=== PATIENT | female | born 1945 | race Caucasian/White ===

== ENCOUNTER 2017-06-22 06:57 | Inpatient (IN) ==
[2017-06-16 12:41] LABS: Basophils # 0.1 10*3/uL (0.0-0.2); Basophils % 0.5 % (0.0-0.8); Eosinophils # 0.2 10*3/uL (0.0-0.87); Eosinophils % 1.9 % (0.00-10.9); Hematocrit 35.1 VOL% (35.7-47.0); Hemoglobin 11.5 GM/DL (12.0-16.0); Immature Granulocytes % 0.4 %; Immature Granulocytes Absolute 0.05 #; Lymphocytes # 2.8 10*3/uL (1.4-4.0); Lymphocytes % 22.2 % (21.3-54.2); Mean Corpuscular HGB Conc 32.8 GM/DL (32-36); Mean Corpuscular Hemoglobin 29 PG (27-34); Mean Corpuscular Volume 88.9 FL (87-102); Mean Platelet Volume 9.3 FL (9.6-12.0); Monocytes # 0.7 10*3/uL (0.11-0.8); Monocytes % 5.2 % (1.7-12.7); Neutrophils # 8.7 10*3/uL (1.4-7.4); Neutrophils % 69.8 % (38.7-73.9); Platelet Count 434 T/CUMM (130-400); Red Blood Count 3.95 MC/CUMM (3.8-5.5); Red Cell Distribution Width 14.6 % (9.3-17.3); White Blood Count 12.5 T/CUMM (4-12)
[2017-06-16 13:20] LABS: Albumin 3.8 G/DL (3.4-5.0); Bilirubin,Total 0.4 MG/DL (0.2-1.0); Calcium 9.3 MG/DL (8.5-10.1); Osmolality,Calculated 281.5 MOS/KG (273-304); Potassium 4.1 MMOL/L (3.5-5.1); Total Protein 7.5 G/DL (6.4-8.3)
[2017-06-22] MEDS ORDERED: HEPARIN 5,000 UNIT/1 ML VIAL ONE (08:53)
[2017-06-22] MEDS ORDERED: VANCOMYCIN 500 MG VIAL ONE (08:53)
[2017-06-22] MEDS ORDERED: SODIUM CHLORIDE 0.9% 50 ML IV ONE (08:58)
[2017-06-22] MEDS ORDERED: ceFAZolin 1,000 MG VIAL ONE (08:58)
[2017-06-22] MEDS ORDERED: FAMOTIDINE 20 MG TABLET PO ONE (09:19)
[2017-06-22] MEDS ORDERED: DIAZEPAM 5 MG TABLET PO ONE (09:19)
[2017-06-22] MEDS ORDERED: IPRATROPIUM 500 MCG/2.5 ML NEB RESP TX ONE (09:19)
[2017-06-22] MEDS: LACTATED RINGERS 1,000 ML IV SCH ×2 (09:19→13:46)
[2017-06-22] MEDS ORDERED: PROMETHAZINE 25 MG/1 ML VIAL IM PRN (11:57)
[2017-06-22] MEDS ORDERED: NALOXONE 0.4 MG/ML VIAL IV PRN (11:57)
[2017-06-22] MEDS ORDERED: GLUCAGON 1 MG VIAL IM PRN (11:57)
[2017-06-22] MEDS ORDERED: ONDANSETRON 4 MG/2 ML VIAL IV PRN ×2 (11:57→12:41)
[2017-06-22] MEDS ORDERED: DEXTROSE 50% 25 GM/50 ML VIAL IV PRN (11:57)
[2017-06-22] MEDS ORDERED: NITROPRUSSIDE 100 MG in DEXTROSE 5% 250 ML IV SCH (12:00)
[2017-06-22] MEDS ORDERED: ALBUTEROL 2.5 MG/3 ML NEB RESP TX SCH (12:01)
[2017-06-22] MEDS ORDERED: HYDROmorphone 2 MG/1 ML VIAL ONE (12:35)
[2017-06-22] MEDS ORDERED: HEPARIN/NACL 0.9% 2 UNITS/ML 500 ML IV ONE (12:35)
[2017-06-22] MEDS ORDERED: PHENYLEPHRINE DRIP 20 MG/250 ML PREMIX IV ONE (12:35)
[2017-06-22] MEDS ORDERED: SEVOFLURANE 1 UNIT/15 MINUTE INH ONE (12:35)
[2017-06-22] MEDS ORDERED: PROPOFOL 200 MG/20 ML VIAL IV ONE (12:35)
[2017-06-22] MEDS ORDERED: HEPARIN 10,000 UNIT/10 ML VIAL ONE (12:35)
[2017-06-22] MEDS ORDERED: fentaNYL 100 MCG/2 ML VIAL ONE (12:36)
[2017-06-22] MEDS ORDERED: MIDAZOLAM 2 MG/2 ML VIAL ONE (12:36)
[2017-06-22] MEDS ORDERED: ONDANSETRON 4 MG/2 ML VIAL ONE ×2 (12:36)
[2017-06-22] MEDS ORDERED: ROCURONIUM 100 MG/10 ML VIAL IV ONE (12:37)
[2017-06-22] MEDS ORDERED: SODIUM CHLORIDE 0.9% 1,000 ML IV ONE (12:37)
[2017-06-22] MEDS ORDERED: LACTATED RINGERS 1,000 ML IV ONE (12:37)
[2017-06-22] MEDS ORDERED: GLYCOPYRROLATE 0.4 MG/2 ML VIAL ONE (12:37)
[2017-06-22] MEDS ORDERED: PROTAMINE SULFATE 50 MG/5 ML VIAL IV ONE (12:37)
[2017-06-22] MEDS ORDERED: NEOSTIGMINE 10 MG/10 ML VIAL ONE (12:37)
[2017-06-22] MEDS: HYDROmorphone 2 MG/1 ML VIAL IV PRN ×4 (12:39→21:38)
[2017-06-22] MEDS ORDERED: HYDROCORTISONE 100 MG VIAL ONE (12:43)
[2017-06-22] MEDS: PHENYLEPHRINE DRIP 40 MG/250 ML PREMIX IV SCH ×2 (13:44→18:36)
[2017-06-22] MEDS ORDERED: ALBUTEROL 2.5 MG/3 ML NEB RESP TX PRN (14:30)
[2017-06-22] MEDS: ASPIRIN EC 81 MG TABLET PO SCH (15:12)
[2017-06-22] MEDS: CLOPIDOGREL 75 MG TABLET PO SCH (15:12)
[2017-06-22] MEDS: predniSONE 5 MG TABLET PO SCH (15:12)
[2017-06-22] MEDS: BUDESONIDE/FORMOTEROL 160-4.5 INHALER 6 GM INH SCH ×2 (15:13→21:39)
[2017-06-22] MEDS: ALBUTEROL/IPRATROPIUM 3 ML NEB RESP TX SCH ×2 (15:55→20:31)
[2017-06-22] MEDS: INSULIN REGULAR 100 UNIT/ML SUBCUT SCH ×2 (16:00→21:37)
[2017-06-22] MEDS ORDERED: PHENYLEPHRINE INJ 80 MG in SODIUM CHLORIDE 0.9% 242 ML IV SCH (18:30)
[2017-06-22] MEDS ORDERED: PHENYLEPHRINE DRIP 40 MG/250 ML PREMIX IV SCH (19:30)
[2017-06-23] MEDS: LACTATED RINGERS 1,000 ML IV SCH
[2017-06-23] MEDS: HYDROmorphone 2 MG/1 ML VIAL IV PRN ×3 (04:23→13:25)
[2017-06-23] MEDS: ALBUTEROL/IPRATROPIUM 3 ML NEB RESP TX SCH ×4 (07:44→20:24)
[2017-06-23] MEDS: INSULIN REGULAR 100 UNIT/ML SUBCUT SCH ×4 (08:58→20:36)
[2017-06-23] MEDS: FLUoxetine 20 MG CAPSULE PO SCH (08:59)
[2017-06-23] MEDS: FUROSEMIDE 20 MG TABLET PO SCH (08:59)
[2017-06-23] MEDS: CLOPIDOGREL 75 MG TABLET PO SCH (08:59)
[2017-06-23] MEDS: ASPIRIN EC 81 MG TABLET PO SCH (08:59)
[2017-06-23] MEDS: OLANZapine 5 MG TABLET PO SCH (08:59)
[2017-06-23] MEDS: BUDESONIDE/FORMOTEROL 160-4.5 INHALER 6 GM INH SCH ×2 (09:00→20:47)
[2017-06-23] MEDS: DIAZEPAM 2 MG TABLET PO SCH (09:08)
[2017-06-23] MEDS: LORazepam 1 MG TABLET PO PRN (16:39)
[2017-06-23] MEDS: PHENYLEPHRINE DRIP 40 MG/250 ML PREMIX IV SCH (19:43)
[2017-06-23] MEDS: oxyCODONE/ACETAMINOPHEN 5-325 MG TABLET PO PRN (20:47)
[2017-06-24] MEDS: LORazepam 1 MG TABLET PO PRN (01:04)
[2017-06-24 06:43] LABS: Allen Test Positive
[2017-06-24 06:44] LABS: ABG Base Excess 4.5 MMOL/L (-2.5-2.5); ABG HCO3 28.4 MMOL/L (20-26); ABG Oxygen Saturation 93.7 % (95-100); ABG PH 7.403 (7.35-7.45); ABG PO2 66.3 MM HG (80-95); ABG TCO2 27.6 MMOL/L (23-27)
[2017-06-24] MEDS: ALBUTEROL/IPRATROPIUM 3 ML NEB RESP TX SCH ×4 (07:45→19:56)
[2017-06-24] MEDS: INSULIN REGULAR 100 UNIT/ML SUBCUT SCH ×3 (08:31→17:01)
[2017-06-24] MEDS: OLANZapine 5 MG TABLET PO SCH (09:09)
[2017-06-24] MEDS: CLOPIDOGREL 75 MG TABLET PO SCH (09:10)
[2017-06-24] MEDS: BUDESONIDE/FORMOTEROL 160-4.5 INHALER 6 GM INH SCH ×2 (09:10→22:06)
[2017-06-24] MEDS: FLUoxetine 20 MG CAPSULE PO SCH (09:10)
[2017-06-24] MEDS: FUROSEMIDE 20 MG TABLET PO SCH (09:10)
[2017-06-24] MEDS: DIAZEPAM 2 MG TABLET PO SCH (09:10)
[2017-06-24] MEDS: predniSONE 5 MG TABLET PO SCH (09:10)
[2017-06-24] MEDS: ASPIRIN EC 81 MG TABLET PO SCH (09:10)
[2017-06-24] MEDS: oxyCODONE/ACETAMINOPHEN 5-325 MG TABLET PO PRN (13:52)
[2017-06-24] MEDS: PHENYLEPHRINE DRIP 40 MG/250 ML PREMIX IV SCH (15:03)
[2017-06-24] MEDS ORDERED: CLOPIDOGREL 75 MG TABLET PO SCH (16:01)
[2017-06-24] MEDS: MIACALCIN NS SCH ×2 (16:03→16:04)
[2017-06-24] MEDS: LACTATED RINGERS 1,000 ML IV SCH ×2 (16:04)
[2017-06-25] MEDS: ALBUTEROL/IPRATROPIUM 3 ML NEB RESP TX SCH ×4 (07:38→20:09)
[2017-06-25] MEDS: DIAZEPAM 2 MG TABLET PO SCH (09:28)
[2017-06-25] MEDS: FLUoxetine 20 MG CAPSULE PO SCH (09:28)
[2017-06-25] MEDS: OLANZapine 5 MG TABLET PO SCH (09:28)
[2017-06-25] MEDS: FUROSEMIDE 20 MG TABLET PO SCH (09:29)
[2017-06-25] MEDS: BUDESONIDE/FORMOTEROL 160-4.5 INHALER 6 GM INH SCH ×2 (09:29→20:07)
[2017-06-25] MEDS: CLOPIDOGREL 75 MG TABLET PO SCH (09:29)
[2017-06-25] MEDS: ASPIRIN EC 81 MG TABLET PO SCH (09:29)
[2017-06-25] MEDS: oxyCODONE/ACETAMINOPHEN 5-325 MG TABLET PO PRN ×2 (09:36→16:46)
[2017-06-26] MEDS: oxyCODONE/ACETAMINOPHEN 5-325 MG TABLET PO PRN ×2 (06:41→13:30)
[2017-06-26] MEDS: ALBUTEROL/IPRATROPIUM 3 ML NEB RESP TX SCH ×4 (07:05→19:18)
[2017-06-26] MEDS: FLUoxetine 20 MG CAPSULE PO SCH (09:44)
[2017-06-26] MEDS: ASPIRIN EC 81 MG TABLET PO SCH (09:44)
[2017-06-26] MEDS: CLOPIDOGREL 75 MG TABLET PO SCH (09:44)
[2017-06-26] MEDS: OLANZapine 5 MG TABLET PO SCH (09:45)
[2017-06-26] MEDS: FUROSEMIDE 20 MG TABLET PO SCH (09:46)
[2017-06-26] MEDS: DIAZEPAM 2 MG TABLET PO SCH (09:46)
[2017-06-26] MEDS: predniSONE 5 MG TABLET PO SCH (09:46)
[2017-06-26] MEDS: BUDESONIDE/FORMOTEROL 160-4.5 INHALER 6 GM INH SCH ×2 (09:48→20:13)
[2017-06-27] MEDS: oxyCODONE/ACETAMINOPHEN 5-325 MG TABLET PO PRN ×2 (06:04→14:22)
[2017-06-27] MEDS: ALBUTEROL/IPRATROPIUM 3 ML NEB RESP TX SCH ×3 (07:30→14:42)
[2017-06-27] MEDS: DIAZEPAM 2 MG TABLET PO SCH (08:40)
[2017-06-27] MEDS: OLANZapine 5 MG TABLET PO SCH (08:40)
[2017-06-27] MEDS: FUROSEMIDE 20 MG TABLET PO SCH (08:40)
[2017-06-27] MEDS: ASPIRIN EC 81 MG TABLET PO SCH (08:40)
[2017-06-27] MEDS: BUDESONIDE/FORMOTEROL 160-4.5 INHALER 6 GM INH SCH (08:41)
[2017-06-27] MEDS: FLUoxetine 20 MG CAPSULE PO SCH (08:41)
[2017-06-27] MEDS: CLOPIDOGREL 75 MG TABLET PO SCH (08:44)
[2017-06-27 11:32] VITALS: BP 148/76
[2017-06-27 13:23] LABS: Apearance,Urine CLEAR (Clear); Bacteria,Urine Occasional /HPF (Few); Bilirubin,Urine Negative (Negative); Blood, Urine Negative (Negative); Glucose,Urine (UA) Negative (Negative); Ketones,Urine Negative (Negative); Nitrite,Urine Negative (Negative); Protein,Urine Negative; RBC,Urine <1 /HPF (0-4); Squamous Epithelial Cell,Urine Occasional /HPF (0-10); Urine Color Colorless (Yellow); Urine Specific Gravity 1.003 (1.001-1.035); Urine Urobilinogen < 2.0 EU/DL (0.2-1.0); WBC,Urine 11 /HPF (0-6)
== END 2017-06-27 15:00 | DRG 68 ==
LOC: N.OR 06:57 → N.SDSINP 07:04 → N.CC 11:57 → N.3E 06-24 15:31
PROVIDERS: ADMIT Surgery; ATTEND Surgery